=== PATIENT | male | born 1955 | race Hispanic/Latino ===

== ENCOUNTER → 2019-10-19 | Day surgery (SDC) | payer MEDICARE, OTHER ==
[2019-10-16 14:51] LABS: BASOPHILS # (AUTO) 0.1 (0.0-0.1); BASOPHILS % 0.9 % (0.0-1.0); EOSINOPHILS # (AUTO) 0.3 (0.0-0.4); EOSINOPHILS % 3.3 % (0.0-6.0); HEMATOCRIT 39.6 % (38.2-49.6); LYMPHOCYTES # (AUTO) 3.1 (1.0-3.2); LYMPHOCYTES % 40.7 % (18.0-39.1); MEAN CORPUSCULAR HEMOGLOBIN 31.3 pg (28-32); MEAN CORPUSCULAR HGB CONC 32.8 g/dL (31-35); MEAN CORPUSCULAR VOLUME 95.2 fL (81-99); MONOCYTES # (AUTO) 0.7 (0.2-0.8); MONOCYTES % 9.1 % (4.4-11.3); NEUTROPHILS # (AUTO) 3.5 (2.1-6.9); NEUTROPHILS % 45.7 % (38.7-80.0); PLATELET COUNT 223 x10e3/uL (140-360); RED BLOOD COUNT 4.16 x10e6/uL (4.3-5.7); RED CELL DISTRIBUTION WIDTH 12.9 % (11.7-14.4)
[2019-10-16 15:08] LABS: ANION GAP 16.5 mmol/L (8-16); CREATININE, SERUM 1.31 mg/dL (0.72-1.25); POTASSIUM 4.5 mmol/L (3.5-5.1)
--- NOTE | 2019-10-16 15:26 | Diagnostic Imaging Report ---
EXAMINATION: CHEST 2 VIEWS INDICATION: Pre-operative COMPARISON: None FINDINGS: LINES/TUBES:None LUNGS:The lungs are well-inflated. No focal consolidation or pulmonary edema. PLEURA:No pleural effusion or pneumothorax. MEDIASTINUM:The cardiomediastinal silhouette appears normal in size and shape. BONES/SOFT TISSUES:No acute osseous injury. ABDOMEN:No free air under the diaphragm. IMPRESSION: No focal pneumonia or pulmonary edema. Signed by: Annelise Moncada MD on 10/16/2019 3:23 PM
[~2019-10-19] MED LIST: B&O 60MG R/S 60 MG SUPP PR ONE; DEXAMETHASONE SOD PHOS INJ 4 MG/ML VIAL ONE; FLOMAX0.4 MG PO; GENTAMICIN 80MG/NS 100 ML 200 ML IV ONE; IOPAMIDOL 300MG/ML 50ML INFUS..BTL IV ONE; LIDOCAINE HCL 2% LOCAL INJ 5 ML SDV VIAL INJ ONE; LISINOPRIL10 MG PO; LOSARTAN POTAS100 MG PO; LOSARTAN-HCTZ1 EAC1 PO; METOPROLOL SUCC25 MG PO; MIDAZOLAM HCL 2 MG/2 ML VIAL ONE; ONDANSETRON HCL INJ 2MG/ML 2ML 2 MG/ML VIAL ONE; PIPER-TAZ 3.375 GM 50 ML ONE; PROPOFOL IV EMULSION 10 MG/ML 20 ML VIAL ONE; SEVOFLURANE INHAL SOLN 250 ML PEN BTL ONE; SIMVASTATIN40 MG PO
[2019-10-19 11:06] VITALS: BP 149/85
--- NOTE | 2019-11-09 07:05 | Operative Report ---
DATE OF PROCEDURE: 10/19/2019 SURGEON: Ric Crowley MD PREOPERATIVE DIAGNOSES: 1. Obstructive benign prostatic hypertrophy. 2. Incomplete bladder emptying. POSTOPERATIVE DIAGNOSES: 1. Obstructive benign prostatic hypertrophy. 2. Incomplete bladder emptying. 3. Urethral stricture disease. PROCEDURES PERFORMED: 1. Cystourethroscopy with calibration and dilation of urethral stricture (separate procedure performed for the diagnosis of stricture). 2. Cystourethroscopy with bilateral ureteral catheterization and retrograde ureteropyelography (separate procedure performed for the incomplete bladder emptying). 3. Cystourethroscopy with implantation of four UroLift implants (separate procedure performed for the obstructive benign prostatic hypertrophy). ANESTHESIA: General. COMPLICATIONS: None. CLINICAL SUMMARY: Kalen Null is a 64-year-old man with the above preoperative diagnoses. He was brought for the above procedures. He is aware of the risks of bleeding, infection, injury to adjacent structures, need for additional procedures and elected to proceed. OPERATIVE PROCEDURE IN DETAIL: Informed consent was verified. Kalen Null was properly identified and taken to the operating room and placed on the cystoscopy table in supine position. Anesthesia was uneventfully begun. The patient was then carefully gently repositioned in dorsal lithotomy position with all pressure points well padded and his genitalia were prepared and draped in the usual sterile fashion. A 21-Khmer cystoscope sheath with the visual obturator in place was atraumatically inserted. The patient's urethra was guided down, unremarkable very distal urethra, but in the midshaft of the urethra, there was one long urethral stricture disease present that was not most likely completely constrictive. We gently dilated across the stricture and dilated to 21-Khmer in size utilizing the visual obturator and the cystoscope sheath. We passed a normal sphincteric region and went through the prostate bed, which was significant for visually obstructing BPH with an elevated median bar. We entered the patient's bladder. Panendoscopy revealed trabeculations with no suspicious lesions. No tumors were noted. An 8-Khmer catheter was used to cannulate each ureter and retrograde ureteropyelograms were performed. Interpretation of retrograde ureteropyelography contrast was instilled in retrograde fashion bilaterally. There were no tumors, no stones, and no diverticula. Unobstructed drainage was observed bilaterally fluoroscopically. Hydrodistention was then carried out for exactly 80 cm water height and held in place for exactly 2 minutes by the clock. The cystoscope was withdrawn, and under direct vision, placed the UroLift cystoscope. We then deployed 4 UroLift implants. All implants were deployed anterolaterally, two were deployed 1.5 cm distal to the bladder neck and two were deployed at the level of the verumontanum. This resulted in a continuous anterior channel that was open. The patient's bladder was drained and the cystoscope was withdrawn pelvic. The belladonna and opium suppository was placed revealing a 35 g prostate, smooth, nonfluctuant without any nodules. The patient was then uneventfully reversed anesthesia and taken to the recovery room in stable condition. There were no complications to the procedure. The patient tolerated the procedure well. We will plan to follow the patient up in the office for uroflowmetry and bladder ultrasonography in the next month. MD KENNETH Arias/LUCERO /[id number]
== END | disposition home or self-care (01) ==
LOC: OR 06:46
PROVIDERS: ATTEND Urology
DX: N40.1 Benign prostatic hyperplasia with lower urinary tract symptoms (principal); N13.8 Other obstructive and reflux uropathy; R39.14 Feeling of incomplete bladder emptying; N35.919 Unspecified urethral stricture, male, unspecified site; N32.89 Other specified disorders of bladder; N39.0 Urinary tract infection, site not specified; I10 Essential (primary) hypertension; K21.9 Gastro-esophageal reflux disease without esophagitis; R00.1 Bradycardia, unspecified; F41.9 Anxiety disorder, unspecified; Z01.810 Encounter for preprocedural cardiovascular examination; Z01.812 Encounter for preprocedural laboratory examination; Z01.818 Encounter for other preprocedural examination; Z11.59 Encounter for screening for other viral diseases; Z87.891 Personal history of nicotine dependence
CPT/HCPCS: 52005; C9740; 36415; 71046; 74420; 80048; 85025; 93005; C1758; J1100; J1580; J2001; J2250; J2405; J2543; L8699; U0002

== ENCOUNTER 2020-06-05 17:40 | Emergency (ER) | payer MEDICARE, OTHER ==
[~2020-06-05] VITALS: Ht 165.1 cm; Wt 82.2 kg
[~2020-06-05 17:40] MED LIST changes: -B&O 60MG R/S 60 MG SUPP PR ONE; -DEXAMETHASONE SOD PHOS INJ 4 MG/ML VIAL ONE; -GENTAMICIN 80MG/NS 100 ML 200 ML IV ONE; -IOPAMIDOL 300MG/ML 50ML INFUS..BTL IV ONE; -LIDOCAINE HCL 2% LOCAL INJ 5 ML SDV VIAL INJ ONE; -MIDAZOLAM HCL 2 MG/2 ML VIAL ONE; -ONDANSETRON HCL INJ 2MG/ML 2ML 2 MG/ML VIAL ONE; -PIPER-TAZ 3.375 GM 50 ML ONE; -PROPOFOL IV EMULSION 10 MG/ML 20 ML VIAL ONE; -SEVOFLURANE INHAL SOLN 250 ML PEN BTL ONE
== END 2020-06-05 20:47 | disposition home or self-care (01) ==
LOC: FSED 18:56 → EDBD 18:56 → FSED 20:47
DX: R33.9 Retention of urine, unspecified (principal); I10 Essential (primary) hypertension; E78.5 Hyperlipidemia, unspecified
CPT/HCPCS: 51700; 81003; 99283